=== PATIENT | male | born 1995 | race Caucasian/White ===

== ENCOUNTER 2019-06-28 11:03 | Emergency (ER) | payer OTHER ==
[~2019-06-28] VITALS: Ht 180.3 cm; Wt 90.7 kg
[2019-06-28 12:33] VITALS: BP 130/89
[2019-06-29] MEDS ORDERED: AMOXICILLIN 50500 MG PO ×2 (11:09→11:18)
[2019-06-29] MEDS ORDERED: TRAMADOL 50 MG50 MG PO (11:09)
[2019-06-29] MEDS ORDERED: NAPROSYN500 MG PO ×2 (11:09→11:18)
== END 2019-06-28 12:34 | disposition home or self-care (01) ==
LOC: M.ERS 11:03
DX: J02.0 Streptococcal pharyngitis (principal); Z90.49 Acquired absence of other specified parts of digestive tract

== ENCOUNTER 2019-06-29 09:48 | Emergency (ER) | payer OTHER ==
[~2019-06-29] VITALS: Ht 180.3 cm; Wt 90.7 kg
[2019-06-29] MEDS ORDERED: NAPROSYN500 MG PO ×2 (11:09→11:18)
[2019-06-29] MEDS ORDERED: TRAMADOL 50 MG50 MG PO (11:09)
[2019-06-29] MEDS ORDERED: AMOXICILLIN 50500 MG PO ×2 (11:09→11:18)
[2019-06-29 11:23] LABS: INFLUENZA A ANTIGEN Negative (Negative); INFLUENZA B ANTIGEN Negative (Negative)
[2019-06-29 11:44] VITALS: BP 148/78
== END 2019-06-29 11:47 | disposition home or self-care (01) ==
LOC: M.ERS 09:48
PROVIDERS: Nurse Practitioner Family
DX: J02.0 Streptococcal pharyngitis (principal); Z90.49 Acquired absence of other specified parts of digestive tract

== ENCOUNTER 2019-08-08 12:02 | Emergency (ER) | payer OTHER ==
[~2019-08-08] VITALS: Ht 180.3 cm; Wt 95.3 kg
[~2019-08-08 12:02] MED LIST: AMOXICILLIN 50500 MG PO; NAPROSYN500 MG PO; TRAMADOL 50 MG50 MG PO
[2019-08-08 13:39] LABS: URINE BILIRUBIN NEGATIVE (Negative); URINE BLOOD 1+ (Negative); URINE CLARITY CLEAR; URINE COLOR YELLOW; URINE GLUCOSE-RANDOM NEGATIVE (Negative); URINE KETONES NEGATIVE (Negative); URINE LEUKOCYTES-REFLEX NEGATIVE (Negative); URINE NITRITE-REFLEX NEGATIVE (Negative); URINE PROTEIN TRACE (Negative); URINE SPECIFIC GRAVITY 1.025 (1.005-1.030); URINE UROBILINOGEN 0.2 E.U./dl (0.2-1.0)
[2019-08-08] MEDS ORDERED: ZOFRAN ODT4 MG PO (13:47)
[2019-08-08 13:53] LABS: BACTERIA-REFLEX 1-9 Few /HPF (None Seen); CASTS None Seen /LPF (None Seen); CRYSTALS None Seen /LPF (None Seen); MUCUS None Seen strn/LPF (None Seen); SQUAMOUS 0-3 Few /LPF (0-3); URINE WBC-REFLEX 0-5 Rare /HPF (0-5)
[2019-08-08 14:17] LABS: INFLUENZA A ANTIGEN Negative (Negative); INFLUENZA B ANTIGEN Negative (Negative)
[2019-08-08] MEDS ORDERED: PENICILLIN VK500 MG PO (14:30)
[2019-08-08 14:51] VITALS: BP 136/68
== END 2019-08-08 14:54 | disposition home or self-care (01) ==
LOC: M.ERS 12:02
PROVIDERS: Nurse Practitioner Family
DX: K52.9 Noninfective gastroenteritis and colitis, unspecified (principal); Z90.49 Acquired absence of other specified parts of digestive tract

== ENCOUNTER 2019-09-23 09:25 | Emergency (ER) | payer OTHER ==
[~2019-09-23] VITALS: Ht 180.3 cm; Wt 99.8 kg
[~2019-09-23 09:25] MED LIST changes: +PENICILLIN VK500 MG PO; +ZOFRAN ODT4 MG PO
[2019-09-23 09:55] LABS: ABSOLUTE BASOPHILS 0.1 thou/uL (0.0-0.2); ABSOLUTE LYMPHOCYTES 1.8 thou/uL (0.8-5.3); ABSOLUTE MONOCYTES 0.5 thou/uL (0.0-1.2); ABSOLUTE NEUTROPHILS 5.9 thou/uL (1.6-8.1); BASOPHILS 0.6 %; EOSINOPHILS 0.4 %; HEMATOCRIT 51.1 % (42.0-52.0); HEMOGLOBIN 18.2 gm/dL (14.0-18.0); LYMPHOCYTES 22.1 %; MCH 35.5 pg (26.0-34.0); MCHC 35.6 g/dL (28.0-37.0); MCV 99.8 fL (80.0-100.0); MONOCYTES 6.1 %; MPV 8.4 fl. (7.2-11.1); NUCLEATED RBCS 0 /100WBC; PLATELET COUNT* 167 thou/uL (150-400); POLYS 70.8 %; RBC 5.12 mil/uL (4.50-6.00); RDW-CV 14.2 % (10.5-14.5); WBC 8.3 thou/uL (4.0-11.0)
[2019-09-23 10:05] LABS: CALCIUM 8.1 mg/dL (8.5-10.1); CREATININE 0.8 mg/dL (0.6-1.3); POTASSIUM 4.1 mmol/L (3.5-5.1)
[2019-09-23 10:07] LABS: AMP/METHAMP Negative (Negative); BARBITURATES Negative (Negative); BENZODIAZEPINES Negative (Negative); COCAINE Negative (Negative); METHADONE Negative (Negative); OPIATES Negative (Negative); PCP Negative (Negative); THC Negative (Negative)
[2019-09-23 10:08] LABS: ALCOHOL 226 mg/dL (<10); SALICYLATE < 2.8 mg/dL (2.8-20.0)
[2019-09-23 10:09] LABS: ACETAMINOPHEN < 2 ug/mL (10-30)
[2019-09-23 10:10] LABS: TOTAL BILIRUBIN 0.5 mg/dL (<0.1-1.0); TOTAL PROTEIN 8.2 g/dL (6.4-8.2)
[2019-09-23 10:12] LABS: URINE BILIRUBIN NEGATIVE (Negative); URINE BLOOD NEGATIVE (Negative); URINE CLARITY CLEAR; URINE COLOR YELLOW; URINE GLUCOSE-RANDOM NEGATIVE (Negative); URINE KETONES 2+ (Negative); URINE LEUKOCYTES-REFLEX NEGATIVE (Negative); URINE NITRITE-REFLEX NEGATIVE (Negative); URINE PROTEIN TRACE (Negative); URINE SPECIFIC GRAVITY >= 1.030 (1.005-1.030); URINE UROBILINOGEN 0.2 E.U./dl (0.2-1.0)
[2019-09-23 21:50] VITALS: BP 124/80
== END 2019-09-23 21:42 ==
LOC: M.ERS 09:25
PROVIDERS: Emergency Medicine Emergency Medical Services
DX: R45.851 Suicidal ideations (principal); Z90.49 Acquired absence of other specified parts of digestive tract